=== PATIENT | male | born 1965 | race Caucasian/White ===

== ENCOUNTER 2016-06-28 22:03 | Observation (INO) | payer OTHER ==
[~2016-06-28] VITALS: Ht 182.9 cm; Wt 117.9 kg
[~2016-06-28 22:03] MED LIST: ALLOPURINOL100 M1 PO; AUGMENTIN 875 M1 TAB PO; COLCHICINE0.6 M2 PO; FISH OIL 1,0001 EAC2 PO; FLEXERIL10 MG PO; GLIMEPIRIDE1 M1 PO; LISINOPRIL10 M1 PO; MELOXICAM15 M1 PO; METFORMIN HCL500 M3 PO; NASONEX0.05 MG/Ac INH; PERCOCET 5-3251 EACH PO; PREDNISONE20 M1 PO; ROBITUSSIN W/CO10 ML PO; SIMVASTATIN40 M1 PO
--- NOTE | 2016-06-28 22:10 | ED CARDIAC/CP/PALPITATIONS ---
History of Present Illness General Chief Complaint: Chest Pain Stated Complaint: CP, HIGH BP PER PT Source: patient Exam Limitations: no limitations Vital Signs & Intake/Output Vital Signs & Intake/Output Vital Signs Date Time Temp Pulse Resp B/P Pulse O2 O2 Flow FiO2 Ox Delivery Rate 06/29 0101 72 18 134/82 97 Room Air 06/28 2236 98.1 80 18 161/93 96 Room Air ED Intake and Output 06/29 0000 06/28 1200 Intake Total 0 Output Total Balance 0 Intake, Oral 0 Patient 260 lb Weight Allergies Coded Allergies: NO KNOWN ALLERGIES (11/01/15) Reconcile Medications Allopurinol 100 MG TABLET 3 TAB PO DAILY GOUT (Reported) Colchicine 0.6 MG TABLET 1 TAB PO AD GOUT 2 TABS PO NOW, THEN 1 TAB IN 1 HOUR, THEN 1 TAB BID Glimepiride 1 MG TABLET 1 TAB PO BID DIABETES (Reported) Lisinopril 10 MG TABLET 1 TAB PO DAILY BP (Reported) Meloxicam 15 MG TABLET 1 TAB PO PRN PAIN/INFLAMMATION (Reported) Metformin HCl 500 MG TABLET 1 TAB PO BID DIABETES (Reported) [place]-3/Dha/Epa/Fish Oil (Fish Oil 1,000 MG Softgel) 1 EACH CAPSULE 3 CAP PO DAILY SUPPLEMENT (Reported) Oxycodone HCl/Acetaminophen (Percocet 5-325 MG Tablet) 1 EACH TABLET 1 TAB PO 4 TIMES/DAY PRN PAIN Prednisone 20 MG TABLET 2 TAB PO DAILY INFLAMMATION Simvastatin (Simvastatin*) 40 MG TABLET 1 TAB PO QPM CHOLESTEROL (Reported) Triage Nurses Notes Reviewed? yes Onset: Gradual Duration: hour(s): Timing: single episode today Quality/Severity: moderate Location: central Radiation: no radiation Activities at Onset: none Prior Chest Pain/Card Workup: no prior chest pain HPI: 50 yo gentleman h/o diabetes, htn, hyperlipidemia, presents with 6/10 sub sternal chest pain, radiating to left arm for the past 1- 2 hours. He notes also he took his blood pressure which was "more than 210." He notes no dyspnea, abdominal pain, nausea, vomiting. Past History Travel History Traveled to [place] past 21 day No Medical History Any Pertinent Medical History? 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 No Review of Systems Review of Systems Constitutional: Reports: no symptoms. EENTM: Reports: no symptoms. Respiratory: Reports: no symptoms. Cardiovascular: Reports: no symptoms. GI: Reports: no symptoms. Genitourinary: Reports: no symptoms. Musculoskeletal: Reports: no symptoms. Skin: Reports: no symptoms. Neurological/Psychological: Reports: no symptoms. Hematologic/Endocrine: Reports: no symptoms. Immunologic/Allergic: Reports: no symptoms. All Other Systems: Reviewed and Negative Physical Exam Physical Exam General Appearance: well developed/nourished, mild distress Head: atraumatic, normal appearance Eyes: Bilateral: normal appearance. Ears, Nose, Throat: normal pharynx, normal ENT inspection Neck: normal inspection, supple, full range of motion Respiratory: normal breath sounds, chest non-tender, no respiratory distress Cardiovascular: regular rate/rhythm Gastrointestinal: normal bowel sounds, soft, non-tender Back: normal inspection, normal range of motion Extremities: normal inspection, normal capillary refill Neurologic/Psych: no motor/sensory deficits, awake, alert, oriented x 3 Skin: intact, normal color, warm/dry Core Measures ACS in differential dx? No Severe Sepsis Present: No Septic Shock Present: No Progress Differential Diagnosis: AMI, pneumonia, pneumothorax, pulmonary embolism, unstable angina Plan of Care: Orders Procedure Date/time Status Nothing by Mouth 06/29 B Active Patient Data 06/29 0050 Active Saline Lock 06/29 0039 Active Misc Message 06/29 0039 Active ED Holding Orders 06/29 0039 Active Vital Signs 06/29 0039 Active Code Status 06/[address] in observation 06/29 0038 Active TROPONIN LEVEL 06/28 221 Complete D-DIMER 06/28 221 Complete COMPREHENSIVE METABOLIC PANEL 06/28 221 Complete CBC WITHOUT DIFFERENTIAL 06/28 2209 Complete EKG 06/28 2206 Active Laboratory Tests 06/28/16 2328: Anion Gap 10, Estimated GFR > 60, BUN/Creatinine Ratio 20.0, Glucose 119 H, Calcium 9.8, Total Bilirubin 1.0, AST 27, ALT 45, Alkaline Phosphatase 74, Troponin I < 0.01, Total Protein 6.7, Albumin 4.4, Globulin 2.3, Albumin/ Globulin Ratio 1.9, D-Dimer < 200, CBC w Diff NO MAN DIFF REQ, RBC 5.11, MCV 81.4, MCH 27.7, RDW 13.6, MPV 10.0, Gran % 60.8, Lymphocytes % 28.8, Monocytes % 6.6, Eosinophils % 3.4, Basophils % 0.4, Absolute Granulocytes 3.6, Absolute Lymphocytes 1.7, Absolute Monocytes 0.4, Absolute Eosinophils 0.2, Absolute Basophils 0, PUBS MCHC 34.0 Diagnostic Imaging: Viewed by Me: Radiology Read. Discussed w/RAD: Radiology Read. CXR Impression: no acute abnormality, no infiltrates, normal size heart, normal mediastinum Initial ED EKG: normal axis, normal intervals, normal p-waves, normal QRS complex, normal sinus rhythm, no change from prior Comments: PATIENT: AMI CARTER PRESENT AGE: 50 PATIENT ACCOUNT NO: [id number] : 66 LOCATION: [facility] ORDERING PHYSICIAN: DARSHAN WESTBROOK MD SERVICE DATE: 06/28/16 EXAM TYPE: RAD - XRY-PORTABLE CHEST XRAY EXAMINATION: CHEST 1 VIEW CLINICAL INFORMATION: Chest pain. COMPARISON: 03/03/2013. TECHNIQUE: An AP view of the chest is provided. FINDINGS: The cardiac silhouette is not enlarged. The mediastinal and hilar contours are unremarkable. There are neither pleural effusions nor pneumothoraces. There are no consolidations. The osseous structures are unremarkable. IMPRESSION: No evidence for acute disease. DICTATED BY: ROSALINA VOGEL MD DATE/TIME DICTATED:06/28/162341 SERVICE ORDER EXPEDITER:VERNON DATE/TIME TRANSCRIBED:06/28/162341 CONFIDENTIAL, DO NOT COPY WITHOUT APPROPRIATE AUTHORIZATION. <Electronically signed in Other Vendor System> SIGNED BY: ROSALINA VOGEL MD 06/28/162346 Departure Departure Disposition: STILL A PATIENT Condition: Stable Clinical Impression Primary Impression: Unstable angina Referrals: VIK ARIZA DO (PCP/Family) Departure Forms: Customer Survey General Discharge Information Observation Note Spoke With: Gilberto MOHR MD Physician Advisor Notified: ELVER ALY,BRYCE Mej[facility] Place Patient In: Non-ED OBS Care Area Rationale for Observation: My rational for observation is as follows . pt with multiple risk factors (dm, lipids, htn) with nitro responsive chest pain , negative trop and dimer, merits rule out and cards evaluation. Critical Care Note Critical Care Note Critical Care Time: 30-74 min
--- NOTE | 2016-06-28 22:37 | NUR ---
RECEIVED 50 YO MALE C/O LEFT SIDED CHEST PAIN STARTED ABOUT 9 PM TONITE WITH BOTH ARMS THROBBING. B/P AT HOME WAS 200/129. THEN 178/127. PAIN CURRENTLY 6/10, WORSE WITH DEEP BREATHING, NO C/O SOB
--- NOTE | 2016-06-28 23:37 | NUR ---
XRAY AT BEDSIDE. SST, LAV, BLUE AND DEJESUS TOP TUBES SENT TO LAB. PT MEDICATED PER EMAR FOR 5/10 CP. WILL CONTINUE TO MONITOR.
--- NOTE | 2016-06-28 23:47 | RADIOLOGY REPORT ---
EXAMINATION: CHEST 1 VIEW CLINICAL INFORMATION: Chest pain. COMPARISON: 03/03/2013. TECHNIQUE: An AP view of the chest is provided. FINDINGS: The cardiac silhouette is not enlarged. The mediastinal and hilar contours are unremarkable. There are neither pleural effusions nor pneumothoraces. There are no consolidations. The osseous structures are unremarkable. IMPRESSION: No evidence for acute disease.
[2016-06-29 00:02] LABS: ABSOLUTE BASOPHIL COUNT 0 /CUMM (0.0-0.2); ABSOLUTE EOSINOPHIL COUNT 0.2 /CUMM (0.0-0.7); ABSOLUTE GRANULOCYTE CT 3.6 /CUMM (1.4-6.5); ABSOLUTE LYMPH COUNT 1.7 /CUMM (1.2-3.4); ABSOLUTE MONOCYTE COUNT 0.4 /CUMM (0.10-0.60); BASOPHIL % 0.4 % (0.0-2.0); EOSINOPHIL % 3.4 % (0-5); GRANULOCYTE % 60.8 % (42.2-75.2); HEMATOCRIT 41.6 % (42-52); MEAN CORPUSCULAR HGB 27.7 PG (27.0-31.0); MEAN CORPUSCULAR VOLUME 81.4 FL (80.0-94.0); PLATELET COUNT 148 /CUMM (130-400); RBC DISTRIBUTION WIDTH 13.6 % (11.5-14.5); RED BLOOD CELL CT 5.11 /CUMM (4.70-6.10); WHITE BLOOD CELL COUNT 5.9 /CUMM (4.8-10.8)
--- NOTE | 2016-06-29 00:05 | NUR ---
PT STATES CP IS 3/10 AT THIS TIME. RESTING COMFORTABLY ON STRETCHER.
--- NOTE | 2016-06-29 00:05 | NUR ---
PT AWARE THAT WE ARE AWAITING LAB RESULTS.
--- NOTE | 2016-06-29 01:40 | History & Physical ---
JOSE ALY,JONATHAN 06/29/16 0135: General Information and HPI MD Statement: I have seen and personally examined AMI CARTER and documented this H&P. The patient is a 50 year old M who presented with a patient stated chief complaint of []. Source of Information: patient, old records Exam Limitations: clinical condition History of Present Illness: Patient is a 50-year-old male with significant past medical history of hypertension, hyperlipidemia, gout on allopurinol, type 2 diabetes, presented with chief complaints of chest pain, substernal, 05/24, radiating to left arm. Patient states that today, 9 o'clock in evening, he started having severe chest pain,located on the left side of the chest, 08/24, associated with dull aching, cramping pain in both of the arm. He checked his blood pressure at that time which was around 200/129. It was constant in nature and not relieving, so he came to the emergency department. He was given nitroglycerin over here. He thinks when he came here the pain was already subsided so he is unsure if nitroglycerin helped him. He denies fever, nausea, vomiting, diaphoresis, trauma, stress, shortness of breath, dysuria, abdominal pain, orthopnea, bilateral leg edema. Allergies/Medications Allergies: Coded Allergies: NO KNOWN ALLERGIES (11/01/15) Home Med list Allopurinol 100 MG TABLET 3 TAB PO DAILY GOUT (Reported) Colchicine 0.6 MG TABLET 1 TAB PO AD GOUT 2 TABS PO NOW, THEN 1 TAB IN 1 HOUR, THEN 1 TAB BID Glimepiride 1 MG TABLET 1 TAB PO BID DIABETES (Reported) Lisinopril 10 MG TABLET 1 TAB PO DAILY BP (Reported) Meloxicam 15 MG TABLET 1 TAB PO PRN PAIN/INFLAMMATION (Reported) Metformin HCl 500 MG TABLET 1 TAB PO BID DIABETES (Reported) [place]-3/Dha/Epa/Fish Oil (Fish Oil 1,000 MG Softgel) 1 EACH CAPSULE 3 CAP PO DAILY SUPPLEMENT (Reported) Oxycodone HCl/Acetaminophen (Percocet 5-325 MG Tablet) 1 EACH TABLET 1 TAB PO 4 TIMES/DAY PRN PAIN Prednisone 20 MG TABLET 2 TAB PO DAILY INFLAMMATION Simvastatin (Simvastatin*) 40 MG TABLET 1 TAB PO QPM CHOLESTEROL (Reported) Past History Travel History Traveled to [place] past 21 day No Medical History Neurological: NONE EENT: NONE Cardiovascular: hypertension, hyperlipidemia Respiratory: bronchitis Gastrointestinal: NONE Hepatic: NONE Renal: NONE Musculoskeletal: gout Psychiatric: NONE Endocrine: diabetes Blood Disorders: NONE Cancer(s): 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 Denies: chills, diaphoresis, fever, malaise. Cardiovascular: Reports: chest pain. Denies: edema, orthopena, palpitations, peripheral edema. Respiratory: Denies: cough, hemoptysis, orthopnea, short of breath, sputum production, stridor. GI: Denies: abdominal pain, bloating, constipation, diarrhea, distention. Genitourinary: Denies: no symptoms. Musculoskeletal: Denies: no symptoms. Neurological/Psychological: Denies: anxiety, dementia. Exam & Diagnostic Data Last 24 Hrs of Vital Signs/I&O Vital Signs Date Time Temp Pulse Resp B/P Pulse O2 O2 Flow FiO2 Ox Delivery Rate 06/29 0308 96.8 73 18 156/93 99 Room Air 06/29 0101 72 18 134/82 97 Room Air 06/28 2236 98.1 80 18 161/93 96 Room Air Intake & Output 06/29 1600 06/29 0800 06/29 0000 Intake Total 0 Output Total 300 Balance -300 0 Intake, Oral 0 Output, Urine 300 Patient 117.934 kg 117.934 kg Weight Physical Exam General Appearance Alert, Oriented X3, Cooperative, No Acute Distress Cardiovascular Normal S1, Normal S2 Lungs Clear to Auscultation, Normal Air Movement Abdomen Soft, No Tenderness Neurological Normal Speech Extremities No Clubbing, No Cyanosis, No Edema Vascular Normal Pulses, Pulses Symmetrical Assessment/Plan Assessment: Patient is a 50-year-old male with significant past medical history of hypertension, hyperlipidemia, gout on allopurinol, type 2 diabetes, presented with chief complaints of chest pain, substernal, 3/10, radiating to left arm. Vital signs at the time of admission-temperature 98.5, pulse 80, respiratory rate 18, blood pressure 161/93, SPO2 96% on room air Pertinent labs -CBC - within normal limits, K-3.7, Glu -119, trop -0.01, d-dimer -<200 Chest x-ray -no any acute cardiopulmonary changes Plan - Acute coronary syndrome under evaluation * We will admit the patient in telemetry for further cardiac monitoring * We will try and EKG/troponins * We discussed the patient with Dr. Mohr and will follow his recommendation * Nitroglycerin was given in the ED, but it was not helpful. * We will follow the echocardiogram Type 2 diabetes mellitus * Blood sugar measurement TID/HS * NovoLog according to the sliding scale Hypertension * We'll continue all home medication -tab lisinopril 10 mgs daily Hyperlipidemia * We'll continue all home medication -tab atorvastatin 40 mgs daily Gout * We will continue allopurinol as before Diet -heart healthy diet DVT prophylaxis-ALP S/heparin CODE STATUS-full code As Ranked By This Provider Problem List: 1. Acute coronary syndrome 2. Hypertension 3. Hyperlipidemia Core Measures/Miscellaneous Acute Coronary Syndrome ACS Diagnosis: No Cerebrovascular Accident CVA/TIA Diagnosis: No Congestive Heart Failure CHF Diagnosis: No Venous Thromboembolism VTE Risk Factors: Age > 40, Obesity [facility] prophylaxis d/t: No contraindications No VTE Pharm Prophylaxis d/t: No contraindications VTE Diagnosis: No VTE Type: NONE VTE Confirmed by (Test): NONE Severe Sepsis Severe Sepsis Present: No Septic Shock Septic Shock Present: No Miscellaneous Documentation Attending Case Discussed With: Gilberto MOHR MD Primary Care Physician: VIK ARIZA DO 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 of HTN, HLD, DM, GOUT, bronchitis, presented to ED with a c/o of chest pain started last nigt at 9pm. He developed chest pain at rest, pressure in nature, constant, 6/10, associated with B/L UE throbbing pain, no heart racing, no n/v, no SOB, no cough, no dizziness and there is no change in urinary or bowel habits. Patient has never experienced similar pain before, he checked his BP at home peior to arrival at ED it was 200/129, BP at ED 161/93. His other vitals was stable Examination as above Labs as above Assessment and plan: #Chest pain could be 2/2 unstable angina, given multiple risk factors for CAD: Will admitt the patient to tele. floor for close monitoring Will trend EKG and Troponin Cardiology is Will repeat labs at am Echocardiogram Will continue home meds: Lisinopril, simvastatin. Will hold on oral hypoglycemic meds Will start insulin sliding scale Accucheck Heart healthy diet Full code DVT ppx: [place] Valery JEFFERSON MD, [facility] 06/30/16 0343: Attending MD Review Statement Attending Statement Attending Assessment/Plan: This patient is admitted under Dr. Mohr's service. H and P was assigned to me by mistake.
--- NOTE | 2016-06-29 02:00 | NUR ---
PT STATES CP IS 0/10 AT THIS TIME. PT TALKING ON TELEPHONE.
--- NOTE | 2016-06-29 03:02 | NUR ---
REPORT GIVEN TO LUCITA IN TELEMETRY. BED IS READY.
[2016-06-29 08:20] LABS: ABSOLUTE BASOPHIL COUNT 0 /CUMM (0.0-0.2); ABSOLUTE EOSINOPHIL COUNT 0.2 /CUMM (0.0-0.7); ABSOLUTE LYMPH COUNT 1.7 /CUMM (1.2-3.4); ABSOLUTE MONOCYTE COUNT 0.4 /CUMM (0.10-0.60); BASOPHIL % 0.7 % (0.0-2.0); EOSINOPHIL % 3.4 % (0-5); GRANULOCYTE % 56.4 % (42.2-75.2); HEMATOCRIT 42.6 % (42-52); MEAN CORPUSCULAR HGB 27.9 PG (27.0-31.0); MEAN CORPUSCULAR HGB CONC 34.1 G/DL (33.0-37.0); MEAN CORPUSCULAR VOLUME 81.8 FL (80.0-94.0); PLATELET COUNT 141 /CUMM (130-400); RED BLOOD CELL CT 5.21 /CUMM (4.70-6.10); WHITE BLOOD CELL COUNT 5.3 /CUMM (4.8-10.8)
[2016-06-29 08:28] VITALS: BP 142/90
[2016-06-29 09:30] VITALS: BP 142/90
--- NOTE | 2016-06-29 14:32 | Patient Discharge Instructions ---
Discharge Instructions General Discharge Information You were seen/treated for: Chest pain Watch for these problems: Chest pain or pressure Pain that travels to your jaw, neck, arm, stomach or back Difficulty breathing Nausea or vomiting Sudden cold sweat or lightheadedness Special Instructions: Please follow up with your primary care physician Dr. Radames Miranda and centrifugal extractor operator Dr. Anderson Dill within one week of discharge. Diet Recommended Diet: Heart Healthy Activity Full Activity/No Limits: Yes Acute Coronary Syndrome Inclusion Criteria At DC or during hospital stay patient has or had the following: ACS DIAGNOSIS No Discharge Core Measures Meds if any: Prescribed or Continued at Discharge Meds if any: NOT Prescribed or Continued at Discharge Congestive Heart Failure Inclusion Criteria At DC or during hospital stay patient has or had the following: CHF DIAGNOSIS No Discharge Core Measures Meds if any: Prescribed or Continued at Discharge Meds if any: NOT Prescribed or Continued at Discharge Cerebrovascular accident Inclusion Criteria At DC or during hospital stay patient has or had the following: CVA/TIA Diagnosis No Discharge Core Measures Meds if any: Prescribed or Continued at Discharge Meds if any: NOT Prescribed or Continued at Discharge Venous thromboembolism Inclusion Criteria VTE Diagnosis No VTE Type NONE VTE Confirmed by (Test) NONE Discharge Core Measures - Per Current guidelines, there needs to be overlap - treatment for the first 5 days of Warfarin therapy. - If discharged on Warfarin prior to 5 days of - overlap therapy, the patient will need to be - assessed for post discharge needs including - *Post discharge parental anticoagulation - *Warfarin and/or parental anticoagulation education - *Follow up date to check INR post discharge At least 5 days overlap therapy as Inpatient No Meds if any: Prescribed or Continued at Discharge Note: Overlap Therapy is Warfarin and Anticoagulant Meds if any: NOT Prescribed or Continued at Discharge
--- NOTE | 2016-06-29 15:11 | PN- Cardiology ---
Subjective Subjective: The patient is doing well today. He denies any further symptoms of chest discomfort. He has been out of bed and ambulating without difficulty. Evaluation thus far unrevealing. Objective Vital Signs and I&Os Vital Signs Date Time Temp Pulse Resp B/P Pulse O2 O2 Flow FiO2 Ox Delivery Rate 06/29 0930 84 142/90 06/29 0828 97.7 84 18 142/90 97 Room Air 06/29 0308 96.8 73 18 156/93 99 Room Air 06/29 0101 72 18 134/82 97 Room Air 06/28 2236 98.1 80 18 161/93 96 Room Air Intake & Output 06/29 1600 06/29 0800 06/29 0000 06/28 1600 06/28 0800 06/28 0000 Intake Total 0 Output Total 300 Balance -300 0 Intake, Oral 0 Output, Urine 300 Patient 260 lb 260 lb Weight Physical Exam: General Appearance Alert, Oriented X3, Cooperative, No Acute Distress Cardiovascular Normal S1, Normal S2, 1/6 systolic murmur Lungs Clear to Auscultation, Normal Air Movement Abdomen Soft, No Tenderness Neurological Normal Speech Extremities No Clubbing, No Cyanosis, No Edema Vascular Normal Pulses, Pulses Symmetrical Current Medications: Current Medications Sig/Allan Start time Last Medication Dose Route Stop Time Status Admin Allopurinol 300 MG 0 06/29 2200 DCD PO Allopurinol 300 MG DAILY 06/29 1000 DC PO Aspirin 81 MG DAILY 06/29 1000 DCD 06/29 PO 0928 Aspirin 0 .STK-MED ONE 06/28 2336 DC PO Aspirin 325 MG ONCE ONE 06/28 2315 DC 06/28 PO 06/28 2316 2340 Atorvastatin Calcium 40 MG 2200 06/29 2200 DCD PO Atorvastatin Calcium 40 MG 1700 06/29 1700 DC PO Enoxaparin Sodium 40 MG DAILY 06/29 1000 DCD SC Insulin Aspart 0 TIDAC 06/29 0800 DCD SC Lisinopril 10 MG DAILY 06/29 1000 DCD 06/29 PO 0930 Multivitamins 1 TAB DAILY 06/29 1000 DCD 06/29 PO 0930 Nitroglycerin 0 .STK-MED ONE 06/28 2336 DC SL Nitroglycerin 0.4 MG ONCE ONE 06/28 2315 DC 06/28 SL 06/28 2316 2340 Potassium Chloride 40 MEQ ONCE ONE 06/29 1145 DC 06/29 PO 06/29 1146 1233 Results Last 48 Hrs of Labs/Mics: Laboratory Tests 06/29/16 1225: Troponin I < 0.01 06/29/16 0600: Troponin I Cancelled 06/29/16 0600: Anion Gap 12, Estimated GFR > 60, BUN/Creatinine Ratio 17.5, Troponin I < 0.01, CBC w Diff NO MAN DIFF REQ, RBC 5.21, MCV 81.8, MCH 27.9, RDW 14.0, MPV 10.0, Gran % 56.4, Lymphocytes % 32.3, Monocytes % 7.2, Eosinophils % 3.4, Basophils % 0.7, Absolute Granulocytes 3.0, Absolute Lymphocytes 1.7, Absolute Monocytes 0.4 , Absolute Eosinophils 0.2, Absolute Basophils 0, PUBS MCHC 34.1 06/28/16 2328: Anion Gap 10, Estimated GFR > 60, BUN/Creatinine Ratio 20.0, Glucose 119 H, Calcium 9.8, Total Bilirubin 1.0, AST 27, ALT 45, Alkaline Phosphatase 74, Troponin I < 0.01, Total Protein 6.7, Albumin 4.4, Globulin 2.3, Albumin/ Globulin Ratio 1.9, D-Dimer < 200, CBC w Diff NO MAN DIFF REQ, RBC 5.11, MCV 81.4, MCH 27.7, RDW 13.6, MPV 10.0, Gran % 60.8, Lymphocytes % 28.8, Monocytes % 6.6, Eosinophils % 3.4, Basophils % 0.4, Absolute Granulocytes 3.6, Absolute Lymphocytes 1.7, Absolute Monocytes 0.4, Absolute Eosinophils 0.2, Absolute Basophils 0, PUBS MCHC 34.0 Assessment/Plan Assessment/Plan Assessment: 1. Chest pain syndrome 2. Hypertension 3. Hyperlipidemia 4. Diabetes Recommendations: -The patient wasn't brought into the hospital on telemetry as an observation for further evaluation of chest pain syndrome. The symptoms were somewhat atypical. In addition, they may or may not have been relieved with 2 sublingual nitroglycerin which were given one half hour apart. However, as per the patient , the symptoms were already abating at the time nitroglycerin was given. His ECG and serial troponins have been negative. -The patient is been ambulating without any further symptoms. -For now, I believe that it is safe to discharge the patient home for further evaluation as an outpatient. -Continue regular medication regimen -Prescription for sublingual nitroglycerin given at discharge -The patient will follow-up with me in the office this week and we will arrange an outpatient echocardiogram and regular stress test to further evaluate his cardiac status. Continue telemetry? No
== END 2016-06-29 14:57 ==
LOC: ENRESERVTM → ENRESERVDT → ERH 22:03 → ERHI 06-29 00:38 → ENPENDDIS 06-29 00:38 → 1NO 06-29 03:39
PROVIDERS: Pediatrics; Student in an Organized Health Care Education/Training Program; ADMIT Specialist
DX: R07.9 Chest pain, unspecified (principal); I10 Essential (primary) hypertension; E78.5 Hyperlipidemia, unspecified; E11.9 Type 2 diabetes mellitus without complications
CPT/HCPCS: 6020; 82436; 93005; 93010; G0378; J1650; J3490

== ENCOUNTER 2016-09-14 09:28 | Emergency (ER) | payer OTHER ==
[~2016-09-14] VITALS: Ht 182.9 cm; Wt 117.9 kg
[2016-09-14 09:34] VITALS: BP 130/88
--- NOTE | 2016-09-14 09:46 | ED UPPER/LOWER EXTREMITY COMPL ---
History of Present Illness General Chief Complaint: Lower Extremity Problems Stated Complaint: RT FOOT PAIN W/ HOT TO TOUCH, NO INJURY Source: patient Exam Limitations: no limitations Vital Signs & Intake/Output Vital Signs & Intake/Output Vital Signs Date Time Temp Pulse Resp B/P B/P Pulse O2 O2 Flow FiO2 Mean Ox Delivery Rate 09/14 0934 97.5 84 18 130/88 100 Room Air Allergies Coded Allergies: NO KNOWN ALLERGIES (11/01/15) Reconcile Medications Allopurinol 100 MG TABLET 3 TAB PO DAILY GOUT (Reported) Cephalexin (Keflex) 500 MG CAPSULE 1 CAP PO BID CELLULITIS Colchicine 0.6 MG TABLET 1 TAB PO AD GOUT 2 TABS PO NOW, THEN 1 TAB IN 1 HOUR, THEN 1 TAB BID Glimepiride 1 MG TABLET 1 TAB PO BID DIABETES (Reported) Lisinopril 10 MG TABLET 1 TAB PO DAILY BP (Reported) Meloxicam 15 MG TABLET 1 TAB PO PRN PAIN/INFLAMMATION (Reported) Meloxicam (Mobic) 15 MG TABLET 1 TAB PO DAILY PRN PAIN Metformin HCl 500 MG TABLET 1 TAB PO BID DIABETES (Reported) [place]-3/Dha/Epa/Fish Oil (Fish Oil 1,000 MG Softgel) 1 EACH CAPSULE 3 CAP PO DAILY SUPPLEMENT (Reported) Oxycodone HCl/Acetaminophen (Percocet 5-325 MG Tablet) 1 EACH TABLET 1 TAB PO 4 TIMES/DAY PRN PAIN Prednisone 20 MG TABLET 2 TAB PO DAILY INFLAMMATION Simvastatin (Simvastatin*) 40 MG TABLET 1 TAB PO QPM CHOLESTEROL (Reported) Triage Note: PT TO ED FOR R FOOT PAIN SINCE FRIDAY, REPRODUCIBLE, NO KNOWN INJURY. PAIN WORSE ON MOVEMENT, TOOK ALEVE PORTABLE SAWYER. MINIMAL REDNESS NOTED TO LATERAL TOP OF FOOT. Triage Nurses Notes Reviewed? yes Onset: Gradual Duration: constant Timing: recent history Severity: severe Severity Numbers: 7 HPI: Patient is a 50-year-old male with a past medical history diabetes who presents emergency room with a gradual onset of a 3 day history of right top of the foot pain swelling and redness. Patient denies any mechanism of injury or ankle pain. Patient denies any tick bite or insect bite. Patient does have resolved fevers in the last 24 hours. Patient has been taking previously prescribed narcotic and NSAIDs with minimal relief of symptoms. Denies any hemoptysis shortness of breath or chest pain (LEXI BALDERAS,YURIY) Past History Travel History Traveled to [place] past 21 day No Medical History Any Pertinent Medical History? 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 No (YURIY CARTER) Review of Systems Review of Systems Constitutional: Reports: see HPI. EENTM: Reports: no symptoms. Respiratory: Reports: no symptoms. Cardiovascular: Reports: no symptoms. Gastrointestinal/Abdominal: Reports: no symptoms. Genitourinary: Reports: no symptoms. Musculoskeletal: Reports: see HPI. Skin: Reports: see HPI, erythema. Neurological/Psychological: Reports: no symptoms. Hematologic/Endocrine: Reports: no symptoms. Immunological: Reports: no symptoms. All Other Systems: Reviewed and Negative (YURIY CARTER) Physical Exam Physical Exam General Appearance: no apparent distress, alert, comfortable Head: atraumatic Eyes: Bilateral: normal appearance. Ears, Nose, Throat: hearing grossly normal Neck: normal inspection Peripheral Pulses: 2+ dorsalis pedis (R), 2+ dorsalis pedis (L) Back: normal inspection Neurologic/Tendon: normal sensation, normal motor functions, normal tendon functions, responds to pain, no evidence tendon injury, no pulse deficit Skin: intact Diagram Feet Top 1) Noted erythema warm to the point tenderness no fluctuance no induration is dermatomes intact Full active range of motion noted with ankle dorsiflexion and plantarflexion CAPILLARY refill less than 2 seconds (YURIY CARTER) Progress Differential Diagnosis: arterial insufficiency, cellulitis, compartment syndrome , contusion, dislocation, DVT, fracture, gout, septic arthritis, sprain, tendon injury Plan of Care: Due to history of present illness and exam findings patient has suspicion of right-sided foot cellulitis. Fortunato wrap was placed to right foot PRE/ post neurovascular was intact. No concerns at this time of DVT. (YURIY CARTER) Departure Departure Disposition: HOME OR SELF CARE Condition: Stable Clinical Impression Primary Impression: Cellulitis of right foot Referrals: VIK ARIZA DO (PCP/Family) Additional Instructions: As discussed begin to elevate THE foot for swelling, begin using the Fortunato wrap for swelling. Begin the prescription and Keflex for the full course. Begin the prescription meloxicam for pain and inflammation. Begin using the crutches you have at home and see to walk without pain. If no better on Friday follow-up with primary care doctor. If symptoms worsen return to emergency room. Prescription is waiting at [facility]. Departure Forms: Customer Survey General Discharge Information Prescriptions: Current Visit Scripts Meloxicam (Mobic) 1 TAB PO DAILY PRN PAIN #14 TAB Cephalexin (Keflex) 1 CAP PO BID #20 CAP (YURIY CARTER) PA/AUTOMOTIVE DESIGN DRAFTER Co-Sign Statement Statement: ED Attending supervision documentation- [] I saw and evaluated the patient. I have also reviewed all the pertinent lab results and diagnostic results. I agree with the findings and the plan of care as documented in the PA's/AUTOMOTIVE DESIGN DRAFTER's documentation. [X] I have reviewed the ED Record and agree with the PA's/AUTOMOTIVE DESIGN DRAFTER's documentation. [] Additions or exceptions (if any) to the PAs/AUTOMOTIVE DESIGN DRAFTER's note and plan are summarized below: [] (ELVER ALY,BRYCE Mejía)
[2016-09-14] MEDS ORDERED: KEFLEX500 M1 PO (10:03)
[2016-09-14] MEDS ORDERED: MOBIC15 M1 PO (10:03)
== END 2016-09-14 10:11 ==
LOC: ERH 09:28
DX: L03.115 Cellulitis of right lower limb (principal)

== ENCOUNTER 2017-06-01 21:30 | Emergency (ER) | payer OTHER ==
[~2017-06-01] VITALS: Ht 182.9 cm; Wt 120.2 kg
[~2017-06-01 21:30] MED LIST changes: +KEFLEX500 M1 PO; +MOBIC15 M1 PO
[2017-06-01 22:26] LABS: ABSOLUTE BASOPHIL COUNT 0 /CUMM (0.0-0.2); ABSOLUTE EOSINOPHIL COUNT 0.1 /CUMM (0.0-0.7); ABSOLUTE GRANULOCYTE CT 4.9 /CUMM (1.4-6.5); ABSOLUTE LYMPH COUNT 1.2 /CUMM (1.2-3.4); ABSOLUTE MONOCYTE COUNT 0.4 /CUMM (0.10-0.60); BASOPHIL % 0.4 % (0.0-2.0); EOSINOPHIL % 1.6 % (0-5); HEMATOCRIT 43.1 % (42-52); MEAN CORPUSCULAR HGB CONC 32.7 G/DL (33.0-37.0); MEAN CORPUSCULAR VOLUME 85.5 FL (80.0-94.0); MEAN PLATELET VOLUME 9.4 FL (7.4-10.4); PLATELET COUNT 167 /CUMM (130-400); RBC DISTRIBUTION WIDTH 13.2 % (11.5-14.5); RED BLOOD CELL CT 5.03 /CUMM (4.70-6.10); WHITE BLOOD CELL COUNT 6.6 /CUMM (4.8-10.8)
--- NOTE | 2017-06-01 22:33 | ED GI/GU/ABDOMINAL COMPLAINT ---
History of Present Illness General Chief Complaint: Male Genitourinary Problems Stated Complaint: GROIN PAIN Source: patient Exam Limitations: no limitations Vital Signs & Intake/Output Vital Signs & Intake/Output Vital Signs Date Time Temp Pulse Resp B/P B/P Pulse O2 O2 Flow FiO2 Mean Ox Delivery Rate 06/01 2342 98.7 81 18 150/48 99 Room Air 06/01 2222 Room Air 06/01 2136 98.2 110 18 158/94 97 Room Air ED Intake and Output 06/02 0000 06/01 1200 Intake Total Output Total 200 Balance -200 Output, Urine 200 Patient 265 lb Weight Allergies Coded Allergies: NO KNOWN ALLERGIES (11/01/15) Reconcile Medications Allopurinol 100 MG TABLET 3 TAB PO DAILY GOUT (Reported) Cephalexin (Keflex) 500 MG CAPSULE 1 CAP PO BID CELLULITIS Colchicine 0.6 MG TABLET 1 TAB PO AD GOUT 2 TABS PO NOW, THEN 1 TAB IN 1 HOUR, THEN 1 TAB BID Glimepiride 1 MG TABLET 1 TAB PO BID DIABETES (Reported) Lisinopril 10 MG TABLET 1 TAB PO DAILY BP (Reported) Meloxicam 15 MG TABLET 1 TAB PO PRN PAIN/INFLAMMATION (Reported) Meloxicam (Mobic) 15 MG TABLET 1 TAB PO DAILY PRN PAIN Metformin HCl 500 MG TABLET 1 TAB PO BID DIABETES (Reported) [place]-3/Dha/Epa/Fish Oil (Fish Oil 1,000 MG Softgel) 1 EACH CAPSULE 3 CAP PO DAILY SUPPLEMENT (Reported) Oxycodone HCl/Acetaminophen (Percocet 5-325 MG Tablet) 5 MG-325 MG TABLET 1-2 TAB PO BID pain Oxycodone HCl/Acetaminophen (Percocet 5-325 MG Tablet) 1 EACH TABLET 1 TAB PO 4 TIMES/DAY PRN PAIN Prednisone 20 MG TABLET 2 TAB PO DAILY INFLAMMATION Simvastatin (Simvastatin*) 40 MG TABLET 1 TAB PO QPM CHOLESTEROL (Reported) Triage Note: 51M REPORTS LEFT GROIN PAIN WITH MILD SWELLING STARTED FRIDAY. TOOK MELOXICAM WITHOUT RELIEF. DENIES RADIATION OF PAIN OR PARASTHESIAS. PAIN 9/10 WHEN STANDING OR WALKING. REPORTS HE HAD A HERNIA A CHILD THAT REQUIRED SURGERY. PAIN WORSENED WITH MOVEMENT AND WALKING/STRETCHING/LIFTING/COUGHING. INTERMITTENT SUBJECTIVE FEVERS. -N/V/D. DENIES DYSURIA OR HEMATURIA OR URGENCY/HESITENCY/FREQUENCY. Triage Nurses Notes Reviewed? yes Onset: Abrupt Duration: day(s): (6), intermittent Timing: recent history Location: groin Radiation: no radiation Activities at Onset: none Prior Abdominal Problems: none No Modifying Factors: none HPI: 51-year-old male comes into the emergency room for further evaluation of left groin pain. Symptoms being going on for the past 6 days. Pain is sharp. Continuous. Worse with certain movements. Pain is exacerbated when he stands. He feels better when he sits down and press when he lays flat. Patient reports that the pain started on Friday and Friday. The pain improved on and then came back on Friday. He had some nausea. Denies any vomiting or fever. Passing his bowels normally. He reports he had a hernia surgery when he was a baby but does not recall exactly where or what exactly was done. Denies any other abdominal surgeries. (Jorge Emerson) Past History Travel History Traveled to [place] past 21 day No Medical History Any Pertinent Medical History? 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 No (Jorge Emerson) Review of Systems Review of Systems Constitutional: Reports: no symptoms. EENTM: Reports: no symptoms. Respiratory: Reports: no symptoms. Cardiovascular: Reports: no symptoms. GI: Reports: no symptoms. Genitourinary: Reports: no symptoms. Musculoskeletal: Reports: see HPI. Skin: Reports: no symptoms. Neurological/Psychological: Reports: no symptoms. Hematologic/Endocrine: Reports: no symptoms. Immunologic/Allergic: Reports: no symptoms. All Other Systems: Reviewed and Negative (Jorge Emerson) Physical Exam Physical Exam General Appearance: well developed/nourished, no apparent distress, alert, awake Head: atraumatic, normal appearance Eyes: Bilateral: normal appearance. Ears, Nose, Throat, Mouth: hearing grossly normal, moist mucous membrane Neck: normal inspection Respiratory: normal breath sounds, no respiratory distress Cardiovascular: regular rate/rhythm Gastrointestinal: soft Male Genitals: normal genitalia Back: normal range of motion Extremities: normal range of motion Neurologic/Psych: awake, alert, oriented x 3, normal gait, normal mood/affect Skin: intact, normal color Core Measures ACS in differential dx? No Sepsis Present: No Sepsis Focused Exam Completed? No (Haris BALDERAS,Jorge) Progress Differential Diagnosis: AMI, appendicitis, biliary colic, bowel obstruction, diverticulitis, gastritis, ischemic bowel, inflamm bowel dis, pancreatitis, peptic ulcer, PUD/GERD, perforated viscous, SBO, testicular torsion, ureterolithiasis, urinary retention, urethritis, UTI/pyelo Plan of Care: Orders Procedure Date/time Status URINALYSIS 06/01 2201 Complete LACTIC ACID 06/01 2201 Complete COMPREHENSIVE METABOLIC PANEL 06/01 2201 Complete CBC WITHOUT DIFFERENTIAL 06/01 2201 Complete Laboratory Tests 06/01/17 2300: Urine Color YEL, Urine Clarity CLEAR, Urine pH 6.0, Ur Specific [place] 1.025, Urine Protein NEG, Urine Ketones TRACE H, Urine Nitrite NEG, Urine Bilirubin NEG, Urine Urobilinogen 0.2, Ur Leukocyte Esterase NEG, Ur Microscopic EXAM NOT REQUIRED, Urine Hemoglobin NEG, Urine Glucose NEG 06/01/17 2220: Anion Gap 13, Estimated GFR > 60, BUN/Creatinine Ratio 17.5, Glucose 95, Lactic Acid 1.1, Calcium 10.0, Total Bilirubin 1.3, AST 34, ALT 46, Alkaline Phosphatase 57, Total Protein 7.0, Albumin 4.6, Globulin 2.4, Albumin/Globulin Ratio 1.9, CBC w Diff NO MAN DIFF REQ, RBC 5.03, MCV 85.5, MCH 28.0, MCHC 32.7 L, RDW 13.2, MPV 9.4, Gran % 74.0, Lymphocytes % 18.4 L, Monocytes % 5.6, Eosinophils % 1.6, Basophils % 0.4, Absolute Granulocytes 4.9, Absolute Lymphocytes 1.2, Absolute Monocytes 0.4, Absolute Eosinophils 0.1, Absolute Basophils 0 Diagnostic Imaging: Viewed by Me: CT Scan. Discussed w/RAD: CT Scan. Radiology Impression: PATIENT: AMI CARTER PRESENT AGE: 51 PATIENT ACCOUNT NO: [id number] : 66 LOCATION: [facility] ORDERING PHYSICIAN: Jorge BALDERAS SERVICE DATE: 06/01/17 EXAM TYPE: CAT - CT PELVIS W IV CONTRAST EXAMINATION: CT PELVIS WITH IV CONTRAST CLINICAL INFORMATION: Pain, question hernia COMPARISON: 06/12/2012 TECHNIQUE: Helical scanning was performed with submillimeter collimation through the pelvis with 100 mL of Optiray 320 intravenous contrast. Sagittal and coronal multiplanar 2-D reconstructions were obtained. FINDINGS: Bowel pattern is felt to be nonobstructing. There is no bulky adenopathy here. There is felt to be beginnings of left inguinal herniation. Some fat within the spermatic ring. This does not contain bowel. Degenerative change in the lumbar sacral spine. IMPRESSION: Left inguinal fatty herniation. Mildly Increasing from previous. This does not contain bowel. DICTATED BY: Jericho Mccracken MD DATE/TIME DICTATED: 06/01/172312 [employer] ARCHITECT:VERNON DATE/TIME TRANSCRIBED:06/01/172312 CONFIDENTIAL, DO NOT COPY WITHOUT APPROPRIATE AUTHORIZATION. <Electronically signed in Other Vendor System> SIGNED BY: Jericho Mccracken MD 06/01/172320 Initial ED EKG: none (Haris BALDERAS,Jorge) Departure Departure Disposition: HOME OR SELF CARE Condition: Stable Clinical Impression Primary Impression: Left inguinal hernia Referrals: Bonilla Wagner DO, DO,Radames Martinez (PCP/Family) Additional Instructions: Follow-up with general surgeon provided. Return if any concerns worsening symptoms. Please go over all results of today's visit with your primary care doctor. Contact your primary care doctor to let them know you were here in the emergency room. There may be nonspecific findings which may not be related to your visit today here in the emergency room but may require further evaluation and chronic monitoring by your primary care doctor. If you had a laceration today the chance of foreign body always remains. You should follow-up with your primary care doctor for recheck in 3-5 days for a wound check. If you had an x-ray done there is a chance that a fracture could have been missed on initial read and you should follow-up with your primary care doctor for repeat x-rays if symptoms persist. If your blood pressure was elevated here in the emergency room please have rechecked by [facility] primary care doctor within the next 48. If you were prescribed a narcotic here in the emergency room or any type of controlled substances you're not allowed to drive while taking this medication or operate any type of heavy machinery. Narcotics can make you feel lightheaded dizziness nausea and can cause constipation. You may need to bulk picker a stool softener. Thank you for choosing [facility] emergency room. Please return to the emergency room immediately if you have any other concerns worsening of symptoms. Departure Forms: Customer Survey General Discharge Information Prescriptions: Current Visit Scripts Oxycodone HCl/Acetaminophen (Percocet 5-325 MG Tablet) 1-2 TAB PO BID #10 TAB Comments 06/01/17 No evidence of incarceration/strain coagulation. Follow-up with PCP. Return if any concerns worsening symptoms. Patient understands and agrees with plan of care. (Jorge Emerson) PA/FINANCIAL SERVICE PROFESSIONAL Co-Sign Statement Statement: ED Attending supervision documentation- [] I saw and evaluated the patient. I have also reviewed all the pertinent lab results and diagnostic results. I agree with the findings and the plan of care as documented in the PA's/FINANCIAL SERVICE PROFESSIONAL's documentation. [X] I have reviewed the ED Record and agree with the PA's/FINANCIAL SERVICE PROFESSIONAL's documentation. [] Additions or exceptions (if any) to the PAs/FINANCIAL SERVICE PROFESSIONAL's note and plan are summarized below: [] (Sebas ALY,Brinda)
--- NOTE | 2017-06-01 23:21 | CT SCAN REPORT ---
EXAMINATION: CT PELVIS WITH IV CONTRAST CLINICAL INFORMATION: Pain, question hernia COMPARISON: 06/12/2012 TECHNIQUE: Helical scanning was performed with submillimeter collimation through the pelvis with 100 mL of Optiray 320 intravenous contrast. Sagittal and coronal multiplanar 2-D reconstructions were obtained. FINDINGS: Bowel pattern is felt to be nonobstructing. There is no bulky adenopathy here. There is felt to be beginnings of left inguinal herniation. Some fat within the spermatic ring. This does not contain bowel. Degenerative change in the lumbar sacral spine. IMPRESSION: Left inguinal fatty herniation. Mildly Increasing from previous. This does not contain bowel.
[2017-06-01] MEDS ORDERED: PERCOCET 5-3251 EACH PO (23:36)
[2017-06-01 23:42] VITALS: BP 150/48
== END 2017-06-01 23:43 ==
LOC: ERH 21:30
PROVIDERS: Physician Assistant Medical
DX: K40.90 Unilateral inguinal hernia, without obstruction or gangrene, not specified as recurrent (principal)
CPT/HCPCS: 81003

== ENCOUNTER → 2017-06-20 | Day surgery (SDC) | payer OTHER ==
[~2017-06-20] VITALS: Ht 182.9 cm; Wt 122.5 kg
[~2017-06-20] MED LIST changes: +LISINOPRIL20 M1 PO; +MULTIVITAMINS1 EAC9 PO
--- NOTE | 2017-06-23 18:24 | Operative Report ---
Operative/Inv Procedure Report Surgery Date: 06/20/17 Name of Procedure: Laparoscopic preperitoneal mesh repair of left inguinal hernia Pre-Operative Diagnosis: Left inguinal hernia Post-Operative Diagnosis: Same, indirect Estimated Blood Loss: scant Surgeon/Multimedia Specialist: Tasha ALY,Evert BALDERAS Anesthesia: general endotracheal tube Operative/Procedure Note Note: Patient was positioned supine on the table. After successful induction of general anesthesia the inguinal and surrounding areas were clipped prepped and draped in the usual sterile fashion. After injection of local anesthetic at the bottom of the umbilicus off the midline to the left, a 1 1/2 cm curved incision was made with a 15 blade, then deepened through Floyd's fascia, sweeping off the rectus sheath. A horizontal 1-1/2 cm incision was made between the fibers, elevating these edges with 0 Vicryl stay sutures. Then retracting the muscle laterally, clearing off the posterior rectus sheath, this space is developed down the midline to the pubis sequentially, with an S retractor, a peanut dissector, then the balloon-camera device, inflating it 30-40 pumps while watching how it opens up the space, keeping the epigastrics up. The balloon is then replaced with a 10 mm Manzano trocar, inserted, shortened, and secured with the stay sutures, gas turned on to 12 not 15 mm. Then two 5 mm trochars are inserted in the midline just below the camera, spaced by approximately 3 cm. Using mostly blunt dissection with peanuts to define the anatomy, first Thong's ligament is swept off medially, checking the medial spaces, direct and femoral. There were no hernias there. Then briefly skipping over the area of the iliac fat pad, we developed the iliopubic tract out laterally to the iliac crest. Then we returned to the area of the fat pad where the hernia sac and the cord structures are adherent, coursing up into an attenuated deep ring. The cord structures form a triangle with the vas approaching medially and the main vessels approaching laterally, with the apex at the deep ring. There was a lot of preperitoneal fat up inside in front that was dragged down and out, helping identify the distal lip of the hernia sac, which is then carefully peeled off the cord structures, especially the vas. The cord is also from the underlying iliac fat. Once the hernia sac is from the cord structures down to the base of this "triangle," a Parietex sided mesh with the suture, is marked and stuffed down the camera trocar, then unfurled in a systematic fashion , first with the smaller leaflet passing behind the cord structures, until the flap covers the epigastrics, covering the deep ring, then the larger leaflet is released from the suture, double-covering the smaller one, but also extends laterally out to the iliac crest, medially over Thong's ligament, and superiorly towards the camera. There is a third part of the mesh, that covers the iliac fat pad like a skirt. The mesh was adjusted back and forth so that the keyhole is centered around the cord, lays flat and the edges are not curling. A trial run of letting the gas escape a little bit to see how the mesh would lay as the peritoneum comes back down is done, then when we're satisfied, we let rest of the gas escape, pulling out the instruments and trochars. The fascia is closed with a [id number] 0 Vicryl suture, tying the stay sutures on top. Then we closed the 3 skin incisions with interrupted 4-0 Monocryl, 3 for the umbilical, one each for the smaller ones, followed by Mastisol, Steri-Strips and Band-Aids. Overall estimated blood loss was minimal, lap and sponge counts were correct, wound expectancy was clean, IV fluids crystalloid, complications none, patient tolerated the procedure well, did not significantly vásquez during extubation and was returned to the recovery room in satisfactory condition.
== END ==
LOC: STS 03:11
DX: K40.90 Unilateral inguinal hernia, without obstruction or gangrene, not specified as recurrent (principal); I10 Essential (primary) hypertension; E11.9 Type 2 diabetes mellitus without complications; Z79.84 Long term (current) use of oral hypoglycemic drugs; M10.9 Gout, unspecified; G47.33 Obstructive sleep apnea (adult) (pediatric)
CPT/HCPCS: 93005; 93010; C1781; C9399; J0690; J2250

== ENCOUNTER 2017-10-11 15:50 | Emergency (ER) | payer OTHER ==
[~2017-10-11] VITALS: Ht 182.9 cm; Wt 124.7 kg
--- NOTE | 2017-10-11 15:53 | ED EAR COMPLAINT ---
History of Present Illness General Chief Complaint: General Adult Stated Complaint: "SINUS/EAR PAIN" X3 DAYS PER PT Source: patient Exam Limitations: no limitations Vital Signs & Intake/Output Vital Signs & Intake/Output Vital Signs Date Time Temp Pulse Resp B/P B/P Pulse O2 O2 Flow FiO2 Mean Ox Delivery Rate 10/11 1556 98.0 85 18 136/90 97 Room Air ED Intake and Output 10/12 0000 10/11 1200 Intake Total Output Total Balance Patient 275 lb Weight Weight Reported by Patient Measurement Method Allergies Coded Allergies: NO KNOWN ALLERGIES (11/01/15) Reconcile Medications Allopurinol 100 MG TABLET 3 TAB PO DAILY GOUT (Reported) Augmentin (Augmentin 500-125 Tablet) 500 MG-125 MG TABLET 1 TAB PO BID SINUSITIS Fluticasone Propionate (Flonase Allergy Relief) 50 MCG/ACTUATION SPRAY.SUSP 2 SPRAY ALEXI DAILY CONGESTION Glimepiride 1 MG TABLET 1 TAB PO BID DIABETES (Reported) Lisinopril 20 MG TABLET 1 TAB PO DAILY BP (Reported) Metformin HCl 500 MG TABLET 1 TAB PO BID DIABETES (Reported) Multiple Vitamin (Multivitamins) 1 EACH TABLET 1 TAB PO DAILY SUPPLEMENT ( Reported) Bryan-3/Dha/Epa/Fish Oil (Fish Oil 1,000 MG Softgel) 1 EACH CAPSULE 3 CAP PO DAILY SUPPLEMENT (Reported) Oxycodone HCl/Acetaminophen (Percocet 5-325 MG Tablet) 5 MG-325 MG TABLET 1-2 TAB PO Q4-6 PRN PAIN Simvastatin (Simvastatin*) 40 MG TABLET 1 TAB PO QPM CHOLESTEROL (Reported) Triage Nurses Notes Reviewed? yes Onset: Gradual Duration: constant Timing: recent history Severity: moderate Severity Numbers: 5 HPI: Patient is a 52-year-old male who presents emergency room with concerns of a three-day history of generalized sinus congestion pain mild right-sided ear pain postnasal drip and generalized weakness. Denies any cough hemoptysis chest pain arm pain jaw pain or sore throat. No sick contacts at home (Pio Lara) Past History Travel History Traveled to [place] past 21 day No Medical History Any Pertinent Medical History? see below for history Neurological: NONE EENT: NONE Cardiovascular: hypertension, hyperlipidemia Respiratory: bronchitis Gastrointestinal: NONE Hepatic: NONE Renal: NONE Musculoskeletal: gout Psychiatric: NONE Endocrine: diabetes Blood Disorders: NONE Cancer(s): NONE DIRECTOR OF PSYCHOLOGY/Reproductive: NONE Other Medical Hx: Elevated uric acid History of MRSA: No History of VRE: No History of CDIFF: No Surgical History Surgical History: non-contributory, N Psychosocial History What is your primary language Austrian Family History Hx Contributory? No (Pio Lara) Review of Systems Review of Systems Constitutional: Reports: no symptoms. EENTM: Reports: see HPI. Respiratory: Reports: see HPI. Cardiovascular: Reports: no symptoms. GI: Reports: no symptoms. Genitourinary: Reports: no symptoms. Musculoskeletal: Reports: no symptoms. Skin: Reports: no symptoms. Neurological/Psychological: Reports: no symptoms. Hematologic/Endocrine: Reports: no symptoms. Immunologic/Allergic: Reports: no symptoms. All Other Systems: Reviewed and Negative (Pio Lara) Physical Exam Physical Exam General Appearance: no apparent distress, alert, comfortable Head: atraumatic Eyes: Bilateral: normal appearance. Ears: Bilateral: canal normal, Tympanic normal. Nose: normal inspection Mouth/Throat: normal mouth inspection, pharynx normal Neck: normal inspection, no midline tenderness Cardiovascular/Respiratory: no respiratory distress Skin: intact, normal color (Pio Lara) Progress Differential Diagnoses I considered the following diagnoses in my evaluation of the patient: [Sinusitis pharyngitis otitis media otitis externa viral syndrome] Plan of Care: Patient is afebrile nontoxic appearing due to history of present illness exam pharynx patient has suspecting sinusitis, clear lungs auscultation Oropharyngeal exam was unremarkable EAR exam unremarkable Initial ED EKG: none (Pio Lara) Departure Departure Disposition: HOME OR SELF CARE Condition: Stable Clinical Impression Primary Impression: Sinusitis Referrals: Radames Miranda DO (PCP/Family) Additional Instructions: As discussed begin the prescription of Augmentin for the full course and Flonase for symptoms began [id number] Sudafed for congestion. If symptoms worsen or if you develop any new concerning symptom return to emergency room. Follow- up with your doctor in 3 days if no better prescriptions waiting at [facility] Departure Forms: Customer Survey General Discharge Information Prescriptions: Current Visit Scripts Augmentin (Augmentin 500-125 Tablet) 1 TAB PO BID #14 TAB Fluticasone Propionate (Flonase Allergy Relief) 2 SPRAY ALEXI DAILY #1 BOT (Pio Lara) PA/BELT MEASURER Co-Sign Statement Statement: ED Attending supervision documentation- [] I saw and evaluated the patient. I have also reviewed all the pertinent lab results and diagnostic results. I agree with the findings and the plan of care as documented in the PA's/BELT MEASURER's documentation. [x] I have reviewed the ED Record and agree with the PA's/BELT MEASURER's documentation. [] Additions or exceptions (if any) to the PAs/BELT MEASURER's note and plan are summarized below: [] (Marian ALY,[facility])
[2017-10-11 15:56] VITALS: BP 136/90
[2017-10-11] MEDS ORDERED: FLONASE ALLERG9.9 ML NAS (16:02)
[2017-10-11] MEDS ORDERED: AUGMENTIN 500-1 EACH PO (16:02)
== END 2017-10-11 16:11 ==
LOC: ERH 15:50
DX: J32.9 Chronic sinusitis, unspecified (principal)